=== PATIENT | male | born 1965 | race Caucasian/White ===

== ENCOUNTER 2019-10-24 12:15 | Emergency (ER) | payer OTHER ==
[2019-10-24] MEDS ORDERED: Diphtheria,Pertussis(Acell),Tetanus Vaccine 0.5 ML SDV IM ONE (12:56)
--- NOTE | 2019-10-24 12:57 | EDM.PDOC ---
ED HPI GENERAL MEDICAL PROBLEM - General Chief Complaint: Skin Complaint Stated Complaint: FISH HOOK IN THUMB Time Seen by Provider: 10/24/19 12:20 Source of Information: Reports: Patient, Family History Limitations: Reports: No Limitations - History of Present Illness Onset: Today Location: Reports: Upper Extremity, Right Improves with: Reports: None Worsens with: Reports: None - Related Data Allergies Allergy/AdvReac Type Severity Reaction Status Date / Time No Known Allergies Allergy Verified 10/24/19 12:36 Home Meds: Home Meds . [Unable to Verify Home Med List] 10/24/19 [History] Past Medical History Cardiovascular History: Reports: Hypertension ED ROS GENERAL - Review of Systems Review Of Systems: See Below Constitutional: Reports: No Symptoms. Denies: Fever, Malaise Respiratory: Denies: Shortness of Breath Cardiovascular: Denies: Chest Pain GI/Abdominal: Denies: Nausea, Vomiting Skin: Reports: Wound Neurological: Reports: No Symptoms. Denies: Paresthesia Psychiatric: Reports: No Symptoms. Denies: Anxiety, Confusion ED EXAM, SKIN/RASH Exam: See Below Exam Limited By: No Limitations General Appearance: Alert, Obese Ears: Normal External Exam Head: Atraumatic, Normocephalic Neck: Normal Inspection Respiratory/Chest: No Respiratory Distress Cardiovascular: Normal Peripheral Pulses Extremities: Other (Hand exhibits a trouble hook with 1 sherry deeply embedded at the base of the right thumb. It is quite loose on manipulation and is not embedded in bone.) Neurological: Alert, Oriented ED SKIN PROCEDURES - Foreign Body Removal Consent Obtained:: Patient Performing Doctor:: Jd Alcaraz Foreign Body Other Location Comment:: Dorsum of hand the proximal to the first metacarpal phalangeal joint Anesthesia Type: Local Anesthesia Other:: 1% lidocaine injected at the site Findings:: Using 11 blade the skin was pierced at the point of the sherry. Hook was advanced until the sherry was exposed and then the sherry was cut off. Lower was then backed out of the wound. Patient tolerated procedure quite well. He had excellent capillary refill in the thumb after the procedure. Due to lidocaine his thumb was now numb. Wound was dressed by nursing staff. Complications:: No Course - Vital Signs Last Recorded V/S: Last Vital Signs Temp 36.2 C 10/24/19 12:41 Pulse 59 L 05/17/20 12:41 Resp 14 10/24/19 12:41 BP 171/93 H 10/24/19 12:41 Pulse Ox 95 10/24/19 12:41 - Orders/Labs/Meds Orders: Active Orders 24 hr Category Date Time Status Vaccines to be Administered [RC] PER UNIT ROUTINE Care 10/24/19 12:56 Active Meds: Medications Discontinued Medications Generic Name Dose Route Start Last Admin Trade Name Oli PRN Reason Stop Dose Admin Diphtheria/Tetanus/Acell Pertussis 0.5 ml 10/24/19 12:56 10/24/19 13:00 Adacel IM 10/24/19 12:57 0.5 ml .ONCE ONE Administration Lidocaine HCl 5 ml 10/24/19 12:38 10/24/19 12:54 Xylocaine-Mpf 1% INJECT 10/24/19 12:39 5 ml ONETIME ONE Administration Departure - Departure Time of Disposition: 13:25 Disposition: Home, Self-Care 01 Condition: Good Clinical Impression: Puncture wound of finger with foreign body - Discharge Information Instructions: Puncture Wound, [id number] Referrals: Jami Vang MD [Primary Care Provider] - Forms: ED Department Discharge Additional Instructions: Observe the area of injury for signs of infection including: Redness, swelling, purulent discharge or fever. You develop any of these see a provider in order to obtain antibiotic. Sepsis Event Note - Focused Exam Vital Signs: Vital Signs Temp Pulse Resp BP Pulse Ox 10/24/19 12:41 36.2 C 59 L 14 171/93 H 95 10/24/19 12:34 36.2 C 59 L 14 171/93 H 95 Date Exam was Performed: 10/24/19 Time Exam was Performed: 13:21 - My Orders Last 24 Hours: My Active Orders 10/24/19 12:56 Vaccines to be Administered [RC] PER UNIT ROUTINE - Assessment/Plan Last 24 Hours: My Active Orders 10/24/19 12:56 Vaccines to be Administered [RC] PER UNIT ROUTINE
== END 2019-10-24 13:39 | disposition home or self-care (01) ==
LOC: JP.ED 12:15
DX: S61.041A Puncture wound with foreign body of right thumb without damage to nail, initial encounter (principal); I10 Essential (primary) hypertension; Z23 Encounter for immunization; W45.8XXA Other foreign body or object entering through skin, initial encounter
CPT/HCPCS: 10120; 90471; 90715; 99283; J2001

== ENCOUNTER 2020-04-12 09:40 | Emergency (ER) | payer OTHER ==
[2020-04-12] MEDS ORDERED: HYDROmorphone 1 MG/ML Syringe IM ONE (10:25)
--- NOTE | 2020-04-12 10:48 | EDM.PDOC ---
ED HPI GENERAL MEDICAL PROBLEM - General Chief Complaint: Upper Extremity Injury/Pain Stated Complaint: RIGHT SHOULD ER PAIN DOWN THE ARM Time Seen by Provider: 04/12/20 10:05 Source of Information: Reports: Patient, Family History Limitations: Reports: No Limitations - History of Present Illness INITIAL COMMENTS - FREE TEXT/NARRATIVE: 54-year-old male was developed intense right shoulder pain, right arm weakness and numbness over the past 12 hours. He had difficulty sleeping last night because of the pain. He has intense pain over the anterior aspect of the right shoulder, numbness through the entire arm and marked increase in pain when trying to move the shoulder, especially abduction. No known injury. No fevers or chills, no neck pain or injury, no shortness of breath. No symptoms in the other 3 extremities. Onset: Gradual (Started somewhat gradually over the past 24 hours, marked worsening over the past 12) Location: Reports: Upper Extremity, Right Improves with: Reports: None Worsens with: Reports: Movement Associated Symptoms: Reports: Other (2 months ago had right knee surgery, but has had left periorbital swelling) Right Shoulder Pain Score (Numeric/FACES): 8 - Related Data Allergies Allergy/AdvReac Type Severity Reaction Status Date / Time No Known Allergies Allergy Verified 04/12/20 09:53 Home Meds: Home Meds amLODIPine [Norvasc] 5 mg PO DAILY 04/12/20 [History] lisinopriL [Prinivil] 20 mg PO DAILY 04/12/20 [History] Past Medical History Cardiovascular History: Reports: Hypertension Musculoskeletal History: Reports: None Endocrine/Metabolic History: Reports: Obesity/BMI 30+ - Past Surgical History Head Surgeries/Procedures: Reports: None Cardiovascular Surgical History: Reports: None, Cardiac Ablation Other Cardiovascular Surgeries/Procedures: ablation x5 about 10-15 yrs ago Endocrine Surgical History: Reports: None Musculoskeletal Surgical History: Reports: Arthroscopic Knee Dermatological Surgical History: Reports: None Social & Family History - Tobacco Use Tobacco Use Status *Q: Current Every Day Tobacco User Years of Tobacco use: 20 Packs/Tins Daily: 1 Used Tobacco, but Quit: No Second Hand Smoke Exposure: Yes - Caffeine Use Caffeine Use: Reports: Coffee - Recreational Drug Use Recreational Drug Use: No Review of Systems - Review of Systems Review Of Systems: See Below Constitutional: Denies: Fever Eyes: Reports: Other (Periorbital swelling over the past 2 months has been waxing and waning around the left eye, a CT scan was recommended by previous provider). Denies: Vision Change Mouth/Throat: Reports: No Symptoms Respiratory: Denies: Shortness of Breath, Pleuritic Chest Pain Cardiovascular: Reports: Chest Pain (Mild chest pressure radiating from shoulder, none currently) GI/Abdominal: Reports: No Symptoms Musculoskeletal: Reports: Shoulder Pain (Right side) Skin: Denies: Bruising Neurological: Reports: Paresthesia (Entire right arm) ED EXAM, GENERAL - Physical Exam Exam: See Below Exam Limited By: No Limitations General Appearance: Alert, Mild Distress (Fairly uncomfortable) Eye Exam: Bilateral Eye: Normal Inspection Head: Atraumatic Neck: Non-Tender, Other (No paracervical muscle tenderness) Respiratory/Chest: No Respiratory Distress, Lungs Clear Cardiovascular: Regular Rate, Rhythm Extremities: Other (Any movement of the right shoulder even passively causes intense increase in symptoms. He has been grasp strength on the right side, and intense pain with palpation of the anterior right shoulder just under the deltoid.) Neurological: Alert, Oriented, Other (Weak grasp strength on the right side) Psychiatric: Anxious Skin Exam: Warm, Dry Course - Vital Signs Last Recorded V/S: Last Vital Signs Temp 98.3 F 04/12/20 09:56 Pulse 66 04/12/20 09:56 Resp 16 04/12/20 09:56 BP 197/98 H 04/12/20 09:56 Pulse Ox 97 04/12/20 09:56 - Orders/Labs/Meds Meds: Medications Discontinued Medications Generic Name Dose Route Start Last Admin Trade Name Oli PRN Reason Stop Dose Admin Hydromorphone HCl 1 mg 04/12/20 10:25 04/12/20 10:28 Dilaudid IM 04/12/20 10:26 1 mg ONETIME ONE Administration - Re-Assessments/Exams Free Text/Narrative Re-Assessment/Exam: 04/12/20 10:[address] was obtained after the patient was given 1 mg of IM Dilaudid. 04/12/20 11:[address] is negative, patient felt better after the sling was placed and IM Dilaudid was given. Patient was given a Medrol Dosepak and 15 doses of Percocet to take along with anti-inflammatories and recheck on Matthew with orthopedics as scheduled. Departure - Departure Time of Disposition: 11:18 Disposition: Home, Self-Care 01 Clinical Impression: Brachial neuritis of right upper extremity - Discharge Information Instructions: Neuropathic Pain Referrals: Jami Vang MD [Primary Care Provider] - Forms: ED Department Discharge Care Plan Goals: Use the sling for comfort, remove arm from sling once or twice daily for gentle range of motion. Take Medrol Dosepak as prescribed along with ibuprofen or naproxen and add stronger pain medication as needed. Recheck Friday as scheduled. Sepsis Event Note (ED) - Evaluation Sepsis Screening Result: No Definite Risk - Focused Exam Vital Signs: Vital Signs Temp Pulse Resp BP Pulse Ox 04/12/20 09:56 98.3 F 66 16 197/98 H 97 04/12/20 09:55 98.3 F 66 16 197/98 H 97
--- NOTE | 2020-04-12 10:58 | CT ---
Head wo Cont CLINICAL HISTORY: Right arm weakness and paresthesia COMPARISON: None TECHNIQUE: Transverse scans were obtained from the base of the skull through the vertex without IV contrast on a multislice, multidetector CT scanner. Auto dosage reduction and iterative reconstruction techniques employed. FINDINGS: No focal abnormal parenchymal density is identified normal. There is no mass effect, hemorrhage, or extraaxial collection. The basal cisterns and sulci over the convexities are normal for age. The ventricles are normal. IMPRESSION: No acute intracranial process
== END 2020-04-12 11:19 | disposition home or self-care (01) ==
LOC: JP.ED 09:40
DX: M54.12 Radiculopathy, cervical region (principal); I10 Essential (primary) hypertension; F17.210 Nicotine dependence, cigarettes, uncomplicated; E66.9 Obesity, unspecified; Z68.34 Body mass index [BMI] 34.0-34.9, adult; Z79.899 Other long term (current) drug therapy
CPT/HCPCS: 70450; 70450-26; 96372; 99285-25; J1170

== ENCOUNTER 2021-06-12 06:44 | Day surgery (SDC) | payer OTHER ==
[~2021-06-12 06:44] MED LIST: Propofol 200 MG/20 ML SDV ONE
[2021-06-12] MEDS ORDERED: Dextrose 5%-Lactated Ringers 1,000 ML IV SCH (07:15)
[2021-06-12] MEDS ORDERED: Meropenem 500 MG in Sodium Chloride 0.9% 50 ML IV ONE (07:15)
[2021-06-12 07:42] LABS: CORONAVIRUS COVID-19 NAA NEGATIVE (NEGATIVE)
[2021-06-12] MEDS ORDERED: fentaNYL 100 MCG/2 ML SDV ONE (08:23)
[2021-06-12] MEDS ORDERED: Midazolam 1 MG/ML 2 ML SDV ONE (08:23)
[2021-06-12] MEDS ORDERED: Propofol 200 MG/20 ML SDV ONE (08:45)
--- NOTE | 2021-06-14 09:09 | OR ---
DATE OF PROCEDURE: 06/12/2021 SURGEON: Clint Brewster MD PREOPERATIVE DIAGNOSIS: Indications for screening colonoscopy. POSTOPERATIVE DIAGNOSIS: Left colonic diverticulosis. OPERATIVE PROCEDURE: Flexible colonoscopy. ANESTHESIA: IV sedation. INDICATION FOR PROCEDURE: This is a 56-year-old presenting for his initial colonoscopy. He has no family or personal history of colonic neoplasia. The plan is to proceed with colonoscopy with biopsies and/or polypectomy as indicated. Potential risks including bleeding and perforation were discussed, and the patient wishes to proceed. DETAILS OF PROCEDURE: The patient was taken to the operating room and placed in a left lateral decubitus position. IV sedation was administered after which the initial digital rectal exam was performed and was unremarkable. Colonoscope was passed into the rectum. Retroflexion revealed some mildly excoriated hemorrhoids. Otherwise, the scope was eventually passed to the cecum. The prep was quite good. Only small liquid stool was present. To that level, the patient had some uncomplicated left colonic diverticulosis. Otherwise, there were no areas of colitis and no areas of polyps or other signs of neoplasia. The above findings were reconfirmed and the scope was withdrawn and the procedure was then concluded. The patient was taken to the recovery room in satisfactory condition. RECOMMENDATION: Will be to repeat the colonoscopy in 10 years. Clint Brewster MD /[id number]
== END 2021-06-12 10:05 | disposition home or self-care (01) ==
LOC: JP.SDS 06:44
PROVIDERS: ATTEND Surgery
DX: Z12.11 Encounter for screening for malignant neoplasm of colon (principal); K57.30 Diverticulosis of large intestine without perforation or abscess without bleeding; K64.9 Unspecified hemorrhoids; F17.210 Nicotine dependence, cigarettes, uncomplicated; I48.91 Unspecified atrial fibrillation; I10 Essential (primary) hypertension; E78.5 Hyperlipidemia, unspecified; E66.9 Obesity, unspecified; Z98.890 Other specified postprocedural states; Z79.899 Other long term (current) drug therapy; Z01.812 Encounter for preprocedural laboratory examination; Z20.822 Contact with and (suspected) exposure to COVID-19
CPT/HCPCS: 0241U; 45378; J2185; J2250; J2704; J3010; J7121

== ENCOUNTER 2023-12-23 17:12 | Emergency (ER) | payer BC, OTHER ==
[2023-12-23 17:31] LABS: BASOPHILS ABSOLUTE AUTO 0.04 K/uL (0.00-0.10); BASOPHILS PERCENT AUTO 0.4 % (0.1-1.3); EOSINOPHILS ABSOLUTE AUTO 0.12 K/uL (0.00-0.40); EOSINOPHILS PERCENT AUTO 1.3 % (0.0-5.4); HEMATOCRIT 44.1 % (38.4-49.7); HEMOGLOBIN 15.3 g/dL (12.9-16.9); IMMATURE GRAN ABSOLUTE AUTO 0.03 K/uL (0.00-0.23); IMMATURE GRAN PERCENT AUTO 0.3 % (0.0-0.7); LYMPHOCYTES ABSOLUTE AUTO 1.64 K/uL (0.8-3.3); LYMPHOCYTES PERCENT AUTO 17.7 % (11.4-47.7); MEAN CORPUSCULAR HEMOGLOBIN 27.8 pg (31.6-35.5); MEAN CORPUSCULAR HGB CONC 34.7 g/dL (31.6-35.5); MEAN CORPUSCULAR VOLUME 80.2 fL (81.4-99.0); MONOCYTES ABSOLUTE AUTO 0.64 K/uL (0.20-0.90); MONOCYTES PERCENT AUTO 6.9 % (3.3-12.6); NEUTROPHILS ABSOLUTE AUTO 6.77 K/uL (1.0-7.6); NEUTROPHILS PERCENT AUTO 73.4 % (40.0-78.1); PLATELET COUNT,PLT 248 K/uL (130-375); WHITE BLOOD CELL COUNT,WBC 9.2 K/uL (3.2-11.0)
[2023-12-23] MEDS: Diltiazem 25 MG/5 ML SDV IVPUSH ONE (17:41)
[2023-12-23 17:48] LABS: INR 2.6; PROTHROMBIN TIME 25.4 sec (9.2-10.6)
[2023-12-23 17:53] LABS: APPEARANCE,URINE CLEAR (CLEAR); BILIRUBIN,URINE NEGATIVE (NEGATIVE); COLOR,URINE YELLOW (YELLOW); GLUCOSE,URINE NEGATIVE (NEGATIVE); KETONES,URINE NEGATIVE (NEGATIVE); LEUKOCYTE ESTERASE,URINE NEGATIVE (NEGATIVE); NITRITE,URINE NEGATIVE (NEGATIVE); OCCULT BLOOD,URINE TRACE-INTACT (NEGATIVE); PROTEIN,URINE TRACE mg/dL (NEGATIVE); UROBILINOGEN,URINE 0.2 EU/dL (0.2-1.0)
[2023-12-23 17:55] LABS: ANION GAP 12.3 mmol/L (5.0-14.0); CALCIUM 8.7 mg/dL (8.5-10.1); CREATININE 0.8 mg/dL (0.8-1.3); EST CRCL DRUG DOSING (CG) 106.46 mL/min; POTASSIUM,K 3.6 mmol/L (3.6-5.2)
[2023-12-23 17:59] LABS: AMORPHOUS SEDIMENT,URINE NOT SEEN; BACTERIA,URINE NOT SEEN; EPITHELIAL CELLS,URINE NOT SEEN; MUCUS,URINE NOT SEEN; RBC,URINE 0-5 (0-5); WBC,URINE NOT SEEN (0-5)
[2023-12-23] MEDS: Diltiazem 120 MG Cap.CD PO ONE (18:02)
[2023-12-23] MEDS: Propofol 200 MG/20 ML SDV IVPUSH ONE (18:59)
== END 2023-12-23 19:17 | disposition home or self-care (01) ==
LOC: JP.ED 17:12
DX: I48.91 Unspecified atrial fibrillation (principal); I10 Essential (primary) hypertension; E78.00 Pure hypercholesterolemia, unspecified; E66.9 Obesity, unspecified; Z79.899 Other long term (current) drug therapy; Z79.01 Long term (current) use of anticoagulants; Z79.82 Long term (current) use of aspirin; Z68.33 Body mass index [BMI] 33.0-33.9, adult
CPT/HCPCS: 36415; 80048; 81001; 84484; 85025; 85610; 92960; 93005; 96374; 99285; A9270; J2704; J3490

== ENCOUNTER 2024-10-15 15:03 | Emergency (ER) | payer BC ==
[2024-10-15] MEDS: HYDROmorphone 0.5 MG/0.5 ML Syringe IVPUSH ONE ×3 (15:36→16:58)
[2024-10-15 15:42] LABS: BASOPHILS ABSOLUTE AUTO 0.04 K/uL (0.00-0.10); BASOPHILS PERCENT AUTO 0.4 % (0.1-1.3); EOSINOPHILS ABSOLUTE AUTO 0.12 K/uL (0.00-0.40); EOSINOPHILS PERCENT AUTO 1.2 % (0.0-5.4); HEMATOCRIT 40.9 % (38.4-49.7); HEMOGLOBIN 14.1 g/dL (12.9-16.9); IMMATURE GRAN ABSOLUTE AUTO 0.03 K/uL (0.00-0.23); IMMATURE GRAN PERCENT AUTO 0.3 % (0.0-0.7); LYMPHOCYTES ABSOLUTE AUTO 1.38 K/uL (0.8-3.3); LYMPHOCYTES PERCENT AUTO 14.1 % (11.4-47.7); MEAN CORPUSCULAR HEMOGLOBIN 29.9 pg (31.6-35.5); MEAN CORPUSCULAR HGB CONC 34.5 g/dL (31.6-35.5); MEAN CORPUSCULAR VOLUME 86.8 fL (81.4-99.0); MONOCYTES ABSOLUTE AUTO 0.95 K/uL (0.20-0.90); MONOCYTES PERCENT AUTO 9.7 % (3.3-12.6); NEUTROPHILS ABSOLUTE AUTO 7.26 K/uL (1.0-7.6); NEUTROPHILS PERCENT AUTO 74.3 % (40.0-78.1); PLATELET COUNT,PLT 225 K/uL (130-375); RED BLOOD CELL COUNT 4.71 M/uL (4.14-5.76); WHITE BLOOD CELL COUNT,WBC 9.8 K/uL (3.2-11.0)
[2024-10-15 15:59] LABS: INR 2.6; PROTHROMBIN TIME 25.1 sec (9.2-10.6)
[2024-10-15 16:02] LABS: CALCIUM 9.5 mg/dL (8.5-10.1); CREATININE 0.8 mg/dL (0.8-1.3); EST CRCL DRUG DOSING (CG) 105.19 mL/min; POTASSIUM,K 3.7 mmol/L (3.6-5.2)
== END 2024-10-15 18:00 ==
LOC: JP.ED 15:03
DX: I82.432 Acute embolism and thrombosis of left popliteal vein (principal); I10 Essential (primary) hypertension; I48.91 Unspecified atrial fibrillation; E66.9 Obesity, unspecified; E78.00 Pure hypercholesterolemia, unspecified; Z79.899 Other long term (current) drug therapy; Z79.1 Long term (current) use of non-steroidal anti-inflammatories (NSAID); Z79.01 Long term (current) use of anticoagulants; Z79.51 Long term (current) use of inhaled steroids; Z68.44 Body mass index [BMI] 60.0-69.9, adult
CPT/HCPCS: 36415; 80048; 82550; 85025; 85610; 96374; 96376; 99283; 99284-25